=== PATIENT | male | born 1990 | race Caucasian/White ===

== ENCOUNTER 2024-09-14 01:42 | Emergency (ER) | payer OTHER ==
[~2024-09-14] VITALS: Ht 170.2 cm; Wt 66.0 kg
[2024-09-14 02:05] VITALS: TEMP 36.5; O2SAT 100
[2024-09-14 06:07] VITALS: TEMP 97.7
[2024-09-14] MEDS: ACETAMINOPHEN 325MG TABLET PO ONE (06:07)
[2024-09-14] MEDS ORDERED: NAPR-681 MT (07:51)
[2024-09-14 08:10] VITALS: BP 132/89; PULSE 72; RESP 14; O2SAT 99
== END 2024-09-14 08:14 | disposition home or self-care (01) ==
LOC: ER 01:42
DX: S02.2XXA Fracture of nasal bones, initial encounter for closed fracture (principal); Y04.0XXA Assault by unarmed brawl or fight, initial encounter; Y93.89 Activity, other specified; Y92.89 Other specified places as the place of occurrence of the external cause; Y99.8 Other external cause status
CPT/HCPCS: 70486; 99284